=== PATIENT | female | born 2000 | race Caucasian/White ===

== ENCOUNTER 2020-10-18 20:21 | Inpatient (IN) | payer OTHER ==
[2020-10-18] MEDS ORDERED: hydrALAZINE 20 MG/ML VIAL SLOW IVP PRN (20:30)
[2020-10-18 20:56] VITALS: BMI 37.8
[2020-10-18] MEDS ORDERED: Promethazine HCl 25 MG/ML VIAL IM/IV PRN (22:03)
[2020-10-18] MEDS ORDERED: Butorphanol Tartrate 1 MG/ML VIAL SLOW IVP PRN (22:31)
[2020-10-19] MEDS ORDERED: Haloperidol Lactate 5 MG/ML VIAL SLOW IVP SCH (00:30)
[2020-10-19] MEDS ORDERED: diphenhydrAMINE 50 MG/ML VIAL IVP SCH (00:45)
[2020-10-19] MEDS ORDERED: Lorazepam 2 MG/ML VIAL SLOW IVP PRN (01:10)
[2020-10-19] MEDS ORDERED: Lidocaine 1% (PF) 30 ML VIAL ONE (02:07)
[2020-10-19] MEDS ORDERED: NS w/ Oxytocin 30 units 500 ML ONE ×2 (02:07→03:17)
[2020-10-19] MEDS ORDERED: Oxytocin 10 UNITS/ML VIAL ONE (02:07)
[2020-10-19] MEDS ORDERED: Misoprostol 200 MCG TAB ONE (02:16)
[2020-10-19] MEDS ORDERED: Ondansetron PF 4 MG/2 ML Vial IVP PRN (02:25)
[2020-10-19] MEDS ORDERED: Promethazine HCl 25 MG/ML VIAL IM PRN (02:25)
[2020-10-19] MEDS ORDERED: hydrALAZINE 20 MG/ML VIAL SLOW IVP PRN ×2 (02:25→02:26)
[2020-10-19] MEDS ORDERED: Bisacodyl 10 MG SUPP PR PRN (02:26)
[2020-10-19] MEDS ORDERED: Measles/Mumps/Rubella 10 MCG/0.5 ML VIAL SC ONE (02:26)
[2020-10-19] MEDS ORDERED: Adacel (T-DAP) 0.5 ML SYRINGE IM ONE (02:26)
[2020-10-19] MEDS ORDERED: Milk Of Magnesia 30 ML UDCUP PO PRN (02:26)
[2020-10-19] MEDS ORDERED: Benzocaine-Menthol 82.5 ML CAN TOP PRN (02:26)
[2020-10-19] MEDS ORDERED: Acetaminophen/Codeine 30-300mg Tablet PO PRN ×2 (02:26)
[2020-10-19] MEDS ORDERED: Lanolin Ointment 7 GM TUBE TOP PRN (02:26)
[2020-10-19] MEDS ORDERED: Varicella virus, LIVE 0.5 ML VIAL SC ONE (02:26)
[2020-10-19] MEDS ORDERED: NS w/ Oxytocin 30 units 500 ML IV SCH (02:45)
[2020-10-19 03:43] LABS: Amphetamine Detected (NotDetected); Barbiturates Screen Not Detected (NotDetected); Benzodiazepine Screen Not Detected (NotDetected); Cocaine Metabolite Screen Not Detected (NotDetected); Methadone Not Detected (NotDetected); Methamphetamine Detected (NotDetected); Opiate Screen Not Detected (NotDetected); Oxycodone Screen Not Detected (NotDetected); Phencyclidine (PCP) Not Detected (NotDetected); THC/Cannabinoid Screen Not Detected (NotDetected); Tricyclic Screen Not Detected (NotDetected)
[2020-10-19] MEDS: Ibuprofen 800 MG TAB PO SCH ×4 (07:33→21:49)
[2020-10-19 07:49] LABS: Hemoglobin 11.3 g/dL (12.0-15.5); Mean Corpuscular HGB CONC 33.2 g/dL (32.0-36.0); Mean Corpuscular Hemoglobin 28.1 pg (27.0-33.0); Mean Corpuscular Volume 84.6 fl (81.6-98.3); Mean Platelet Volume 12.9 fl (7.4-10.4); Platelet Count 249 10x3/uL (150-450); Red Blood Cell (RBC) Count 4.02 10x6/uL (3.90-5.03); White Blood Cell (WBC) Count 17.8 10x3/uL (3.5-10.5)
[2020-10-19 07:51] LABS: ALT (SGPT) 33 U/L (8-55); AST (SGOT) 40 U/L (5-34); Albumin 2.8 g/dL (3.5-5.0); Alkaline Phosphatase 181 U/L (40-110); Anion Gap 13 mmol/L (10-20); BUN (Urea Nitrogen) 7 mg/dL (7.0-18.7); Bilirubin, Total 0.5 mg/dL (0.2-1.2); Calc. Creatinine Clearance 178 mL/min (70-130); Calcium 8.3 mg/dL (7.8-10.44); Carbon Dioxide 18 mmol/L (22-29); Chloride 105 mmol/L (98-107); Globulin 3.4 g/dL (2.4-3.5); Glucose 77 mg/dL (70-105); Potassium 3.9 mmol/L (3.5-5.1); Protein, Total 6.2 g/dL (6.0-8.3); Sodium 132 mmol/L (136-145)
[2020-10-19] MEDS ORDERED: Prenatal Vitamin 1 TAB PO SCH (09:00)
[2020-10-19] MEDS: Ferrous Sulfate 325 MG TAB PO SCH ×2 (09:15→17:31)
[2020-10-19] MEDS: Docusate Calcium (SURFAK) 240 MG CAP PO SCH ×2 (09:16→21:49)
[2020-10-19 09:22] LABS: Hep B Surf Ag Non-Reactive S/CO (NonReactive); Syphilis Antibody Nonreactive (Nonreactive); Syphilis Antibody Index 0.03 S/CO (<1.00 Non-Reactive)
[2020-10-19 10:25] LABS: pH (Cord, venous) 7.329 (7.250-7.350)
[2020-10-19 10:44] LABS: #Monocytes 1.3 10x3/uL (0.0-1.1); #Neutrophils 14.2 10x3/uL (1.5-8.4); %Basophils 0.2 % (0.0-2.0); %Eosinophils 0.1 % (0.0-6.0); %Monocytes 7.5 % (0.0-10.0); %Neutrophils 79.9 % (40.0-75.0)
[2020-10-19 14:04] LABS: HIV (1/2) Antibody/Antigen Non-Reactive (NonReactive); HIV 1/2 INDEX 0.23 S/CO (<1.00)
[2020-10-19 18:57] LABS: SARS-CoV-2 PCR by NAA Not Detected (NotDetected)
[2020-10-20] MEDS: Ibuprofen 800 MG TAB PO SCH (05:30)
[2020-10-20 07:35] LABS: HIV (1/2) Antibody/Antigen Non-Reactive (NonReactive); HIV 1/2 INDEX 0.09 S/CO (<1.00)
[2020-10-20 08:01] VITALS: BP 112/57; TEMP 97.9
== END 2020-10-20 17:15 | disposition home or self-care (01) | DRG 805 ==
LOC: CSHLD/OP 20:21 → CSHLD 21:06 → OBSVTOIN 10-19 02:25 → CSHPP 10-19 05:21
PROVIDERS: ADMIT Family Medicine; ATTEND Family Medicine
PROC: 10E0XZZ Delivery of Products of Conception, External Approach (ICD-10-PCS; principal; 2020-10-19)
DX: O99.324 Drug use complicating childbirth (principal); O60.14X0 Preterm labor third trimester with preterm delivery third trimester, not applicable or unspecified; Z37.0 Single live birth; Z3A.36 36 weeks gestation of pregnancy; F15.129 Other stimulant abuse with intoxication, unspecified
CPT/HCPCS: 76805; 80053; 80306; 82805; 85025; 86780; 86850; 86900; 86901; 87340; 87389; 87635; 88307; 96372; 96374; 96375; 99285; G0378; J0595; J1630; J2060; J2550; U0003; U0005